=== PATIENT | female | born 1950 | race Caucasian/White ===

== ENCOUNTER 2021-04-21 22:57 | Inpatient (IN) | payer MEDICARE ==
[2021-04-21] MEDS ORDERED: Ondansetron PF 4 MG/2 ML Vial IVP PRN (23:00)
[2021-04-21] MEDS ORDERED: Acetaminophen 325 MG TAB PO PRN (23:00)
[2021-04-21] MEDS ORDERED: Senokot S 8.6-50 MG TAB PO PRN (23:00)
[2021-04-21] MEDS ORDERED: Calcium Carbonate 500 MG ChewTAB PO PRN (23:00)
[2021-04-21] MEDS ORDERED: Zolpidem Tartrate 5 MG TAB PO PRN (23:00)
[2021-04-21 23:09] VITALS: BMI 37.8
[2021-04-21] MEDS ORDERED: Pantoprazole 80 MG in Sodium Chloride 0.9% 100 ML IVPB SCH (23:15)
[2021-04-21] MEDS ORDERED: Atorvastatin Calcium 10 MG TAB PO SCH (23:30)
[2021-04-21] MEDS ORDERED: buPROPion 75 MG TAB PO SCH (23:30)
[2021-04-21] MEDS ORDERED: FLU VACC QS2021-22(65YR UP)/PF 240 MCG/0.7 ML SYRINGE IM ONE (23:45)
[2021-04-22] MEDS: Lactated Ringer's 1,000 ML IV SCH (00:10)
[2021-04-22] MEDS ORDERED: traZODone HCl 50 MG TAB PO SCH (01:00)
[2021-04-22 01:53] LABS: Lactic Acid 2.2 mmol/L (0.5-2.2)
[2021-04-22 01:58] LABS: Iron 15 ug/dL (50-170); Iron Binding Capacity, Total 450 mcg/dL (265-497)
[2021-04-22 02:18] LABS: Ferritin 7.65 ng/mL (10-291)
[2021-04-22] MEDS: Levothyroxine Sodium 25 MCG TAB PO SCH (06:11)
[2021-04-22 08:32] LABS: #Eosinphils 0.1 10x3/uL (0.0-0.5); #Monocytes 0.5 10x3/uL (0.0-1.1); %Basophils 0.4 % (0.0-2.0); %Lymphocytes 19.2 % (18.0-47.0); %Monocytes 7.4 % (0.0-10.0); %Neutrophils 71.4 % (40.0-75.0); Hemoglobin 6.2 g/dL (12.0-15.5); Mean Corpuscular HGB CONC 28.8 g/dL (32.0-36.0); Mean Corpuscular Hemoglobin 21.9 pg (27.0-33.0); Mean Platelet Volume 11.4 fl (7.4-10.4); Platelet Count 265 10x3/uL (150-450); RBC Distribution Width 18.2 % (11.5-14.5); Red Blood Cell (RBC) Count 2.83 10x6/uL (3.90-5.03)
[2021-04-22 08:43] LABS: Anion Gap 15 mmol/L (10-20); BUN (Urea Nitrogen) 12 mg/dL (9.8-20.1); Calc. Creatinine Clearance 81 mL/min (70-130); Calcium 8.2 mg/dL (7.8-10.44); Carbon Dioxide 20 mmol/L (23-31); Chloride 110 mmol/L (98-107); Glucose 87 mg/dL (83-110); Potassium 3.9 mmol/L (3.5-5.1); Sodium 141 mmol/L (136-145)
[2021-04-22 08:57] LABS: Platelet Morphology Comment Appears Adequate
[2021-04-22 08:59] LABS: Elliptocytes SLIGHT = 2-5 cells (100X) (0-1/hpf); Schistocytes SLIGHT = 2-5 cells (100X) (0-1/hpf); Target Cells SLIGHT = 2-5 cells (100X) (0-1/hpf); Tear Drops SLIGHT = 2-5 cells (100X) (0-1/hpf)
[2021-04-22 09:00] LABS: Anisocytosis MODERATE=16-30 cells (100X) (0-5/hpf); Hypochromia MODERATE=16-30 cells (100X) (0-5/hpf); Macrocytosis SLIGHT = 6-15 cells (100X) (0-5/hpf); Microcytosis SLIGHT = 6-15 cells (100X) (0-5/hpf)
[2021-04-22] MEDS: buPROPion 75 MG TAB PO SCH ×2 (09:24→21:12)
[2021-04-22] MEDS: Losartan 25 MG TAB PO SCH (09:24)
[2021-04-22 11:54] LABS: Vitamin B12 Greater than 2000 pg/mL (211-911)
[2021-04-22] MEDS ORDERED: diphenhydrAMINE 50 MG/ML VIAL IVP SCH (12:30)
[2021-04-22 18:04] LABS: Hemoglobin 7.4 g/dL (12.0-15.5)
[2021-04-22] MEDS: Atorvastatin Calcium 10 MG TAB PO SCH (21:10)
[2021-04-22] MEDS: traZODone HCl 50 MG TAB PO SCH (21:10)
[2021-04-22] MEDS: Pantoprazole 40 MG VIAL IVP SCH (21:13)
[2021-04-23 04:23] LABS: #Basophils 0.1 10x3/uL (0.0-0.2); #Eosinphils 0.1 10x3/uL (0.0-0.5); #Monocytes 0.4 10x3/uL (0.0-1.1); #Neutrophils 3.3 10x3/uL (1.5-8.4); %Eosinophils 2.5 % (0.0-6.0); %Lymphocytes 23.5 % (18.0-47.0); %Monocytes 8.2 % (0.0-10.0); Hemoglobin 7.4 g/dL (12.0-15.5); Mean Corpuscular HGB CONC 29.2 g/dL (32.0-36.0); Mean Corpuscular Hemoglobin 22.6 pg (27.0-33.0); Mean Corpuscular Volume 77.1 fl (81.6-98.3); Mean Platelet Volume 11.2 fl (7.4-10.4); Platelet Count 250 10x3/uL (150-450); RBC Distribution Width 18.2 % (11.5-14.5); Red Blood Cell (RBC) Count 3.28 10x6/uL (3.90-5.03); White Blood Cell (WBC) Count 5.1 10x3/uL (3.5-10.5)
[2021-04-23 04:47] LABS: ALT (SGPT) 16 U/L (8-55); AST (SGOT) 25 U/L (5-34); Albumin 3.3 g/dL (3.4-4.8); Alkaline Phosphatase 64 U/L (40-110); Anion Gap 12 mmol/L (10-20); BUN (Urea Nitrogen) 7 mg/dL (9.8-20.1); Calc. Creatinine Clearance 79 mL/min (70-130); Calcium 7.9 mg/dL (7.8-10.44); Carbon Dioxide 20 mmol/L (23-31); Chloride 114 mmol/L (98-107); Globulin 2.1 g/dL (2.4-3.5); Glucose 84 mg/dL (83-110); Potassium 3.7 mmol/L (3.5-5.1); Protein, Total 5.4 g/dL (5.8-8.1); Sodium 142 mmol/L (136-145)
[2021-04-23] MEDS: Levothyroxine Sodium 25 MCG TAB PO SCH (06:11)
[2021-04-23 07:08] LABS: Hypochromia SLIGHT = 6-15 cells (100X) (0-5/hpf); Microcytosis SLIGHT = 6-15 cells (100X) (0-5/hpf); Ovalocytes SLIGHT = 2-5 cells (100X) (0-1/hpf); Polychromasia SLIGHT = 2-3 cells (100X) (0-2/hpf)
[2021-04-23 07:10] LABS: Tear Drops SLIGHT = 2-5 cells (100X) (0-1/hpf)
[2021-04-23 08:39] LABS: Hemoglobin 8.2 g/dL (12.0-15.5)
[2021-04-23] MEDS: Losartan 25 MG TAB PO SCH (08:50)
[2021-04-23] MEDS: Pantoprazole 40 MG VIAL IVP SCH ×2 (08:50→21:21)
[2021-04-23] MEDS: buPROPion 75 MG TAB PO SCH ×2 (08:50→21:21)
[2021-04-23] MEDS: Lactated Ringer's 1,000 ML IV SCH ×2 (10:11→15:20)
[2021-04-23] MEDS ORDERED: Lidocaine 1% PF 5 ML VIAL ONE (11:26)
[2021-04-23] MEDS ORDERED: PROPOFOL 20 ML ONE (11:26)
[2021-04-23] MEDS ORDERED: GoLYTELY 4,000 ml Bottle PO SCH ×2 (12:30→15:00)
[2021-04-23 14:06] LABS: Hemoglobin 8.8 g/dL (12.0-15.5)
[2021-04-23 20:21] LABS: Hemoglobin 9.1 g/dL (12.0-15.5)
[2021-04-23] MEDS: Atorvastatin Calcium 10 MG TAB PO SCH (21:19)
[2021-04-23] MEDS: traZODone HCl 50 MG TAB PO SCH (21:19)
[2021-04-24 03:18] LABS: Hemoglobin 8.9 g/dL (12.0-15.5)
[2021-04-24 05:21] LABS: #Eosinphils 0.1 10x3/uL (0.0-0.5); #Monocytes 0.4 10x3/uL (0.0-1.1); #Neutrophils 3.4 10x3/uL (1.5-8.4); %Basophils 0.6 % (0.0-2.0); %Eosinophils 2.7 % (0.0-6.0); %Lymphocytes 24.6 % (18.0-47.0); %Monocytes 7.2 % (0.0-10.0); %Neutrophils 64.5 % (40.0-75.0); Hemoglobin 8.3 g/dL (12.0-15.5); Mean Corpuscular HGB CONC 30.4 g/dL (32.0-36.0); Mean Corpuscular Hemoglobin 23.3 pg (27.0-33.0); Mean Corpuscular Volume 76.7 fl (81.6-98.3); Mean Platelet Volume 10.7 fl (7.4-10.4); Platelet Count 222 10x3/uL (150-450); RBC Distribution Width 18.6 % (11.5-14.5); Red Blood Cell (RBC) Count 3.56 10x6/uL (3.90-5.03); White Blood Cell (WBC) Count 5.3 10x3/uL (3.5-10.5)
[2021-04-24 05:36] LABS: ALT (SGPT) 19 U/L (8-55); AST (SGOT) 27 U/L (5-34); Albumin 3.4 g/dL (3.4-4.8); Alkaline Phosphatase 61 U/L (40-110); Anion Gap 14 mmol/L (10-20); BUN (Urea Nitrogen) 5 mg/dL (9.8-20.1); Bilirubin, Total 0.6 mg/dL (0.2-1.2); Calc. Creatinine Clearance 82 mL/min (70-130); Calcium 7.9 mg/dL (7.8-10.44); Carbon Dioxide 20 mmol/L (23-31); Chloride 111 mmol/L (98-107); Globulin 2.2 g/dL (2.4-3.5); Glucose 90 mg/dL (83-110); Potassium 3.7 mmol/L (3.5-5.1); Protein, Total 5.6 g/dL (5.8-8.1); Sodium 141 mmol/L (136-145)
[2021-04-24] MEDS: Levothyroxine Sodium 25 MCG TAB PO SCH (06:16)
[2021-04-24 07:31] LABS: Hemoglobin 8.2 g/dL (12.0-15.5)
[2021-04-24] MEDS ORDERED: PROPOFOL 20 ML ONE (10:02)
[2021-04-24] MEDS ORDERED: Lidocaine 2% MPF 10 ML AMP (For Epidural Use) ONE (10:05)
[2021-04-24] MEDS: Losartan 25 MG TAB PO SCH (10:18)
[2021-04-24] MEDS: Lactated Ringer's 1,000 ML IV SCH (10:27)
[2021-04-24] MEDS: buPROPion 75 MG TAB PO SCH ×2 (10:33→20:51)
[2021-04-24] MEDS: Pantoprazole 40 MG VIAL IVP SCH (10:34)
[2021-04-24] MEDS: Ferrous Sulfate 325 MG TAB PO SCH (17:38)
[2021-04-24] MEDS: Atorvastatin Calcium 10 MG TAB PO SCH (20:52)
[2021-04-24] MEDS: traZODone HCl 50 MG TAB PO SCH (20:59)
[2021-04-25 05:13] LABS: #Eosinphils 0.1 10x3/uL (0.0-0.5); #Monocytes 0.5 10x3/uL (0.0-1.1); #Neutrophils 4.9 10x3/uL (1.5-8.4); %Basophils 0.6 % (0.0-2.0); %Lymphocytes 21.9 % (18.0-47.0); %Monocytes 6.3 % (0.0-10.0); %Neutrophils 68.8 % (40.0-75.0); Hemoglobin 8.7 g/dL (12.0-15.5); Mean Corpuscular HGB CONC 29.7 g/dL (32.0-36.0); Mean Corpuscular Hemoglobin 23.2 pg (27.0-33.0); Mean Corpuscular Volume 78.1 fl (81.6-98.3); Mean Platelet Volume 11.6 fl (7.4-10.4); Platelet Count 233 10x3/uL (150-450); RBC Distribution Width 19.6 % (11.5-14.5); Red Blood Cell (RBC) Count 3.75 10x6/uL (3.90-5.03); White Blood Cell (WBC) Count 7.1 10x3/uL (3.5-10.5)
[2021-04-25 05:24] LABS: ALT (SGPT) 19 U/L (8-55); AST (SGOT) 25 U/L (5-34); Albumin 3.3 g/dL (3.4-4.8); Alkaline Phosphatase 66 U/L (40-110); Anion Gap 14 mmol/L (10-20); BUN (Urea Nitrogen) 6 mg/dL (9.8-20.1); Bilirubin, Total 0.6 mg/dL (0.2-1.2); Calc. Creatinine Clearance 79 mL/min (70-130); Calcium 8.2 mg/dL (7.8-10.44); Carbon Dioxide 22 mmol/L (23-31); Chloride 111 mmol/L (98-107); Globulin 2.2 g/dL (2.4-3.5); Glucose 85 mg/dL (83-110); Potassium 3.8 mmol/L (3.5-5.1); Protein, Total 5.5 g/dL (5.8-8.1); Sodium 143 mmol/L (136-145)
[2021-04-25] MEDS: Levothyroxine Sodium 25 MCG TAB PO SCH (06:24)
[2021-04-25] MEDS: Ferrous Sulfate 325 MG TAB PO SCH ×2 (08:54→16:58)
[2021-04-25] MEDS: Losartan 25 MG TAB PO SCH (08:54)
[2021-04-25] MEDS: buPROPion 75 MG TAB PO SCH ×2 (08:54→20:37)
[2021-04-25 14:36] LABS: Hemoglobin 8.6 g/dL (12.0-15.5); Platelet Count 238 10x3/uL (150-450)
[2021-04-25] MEDS: traZODone HCl 50 MG TAB PO SCH (20:37)
[2021-04-25] MEDS: Atorvastatin Calcium 10 MG TAB PO SCH (20:37)
[2021-04-25 23:34] VITALS: BP 163/83; TEMP 98.6
== END 2021-04-25 21:40 | disposition home or self-care (01) | DRG 811 ==
LOC: CSHTELE 22:57
PROVIDERS: ADMIT Student in an Organized Health Care Education/Training Program; ATTEND Hospitalist
PROC: 30233N1 Transfusion of Nonautologous Red Blood Cells into Peripheral Vein, Percutaneous Approach (ICD-10-PCS; principal; 2021-04-22)
PROC: 0DB98ZX Excision of Duodenum, Via Natural or Artificial Opening Endoscopic, Diagnostic (ICD-10-PCS; 2021-04-23)
PROC: 0DB68ZX Excision of Stomach, Via Natural or Artificial Opening Endoscopic, Diagnostic (ICD-10-PCS; 2021-04-23)
PROC: 0DJD8ZZ Inspection of Lower Intestinal Tract, Via Natural or Artificial Opening Endoscopic (ICD-10-PCS; 2021-04-24)
DX: D50.9 Iron deficiency anemia, unspecified (principal); R65.11 Systemic inflammatory response syndrome (SIRS) of non-infectious origin with acute organ dysfunction; E87.2 Acidosis; N17.9 Acute kidney failure, unspecified; K92.2 Gastrointestinal hemorrhage, unspecified; E78.5 Hyperlipidemia, unspecified; I10 Essential (primary) hypertension; E03.9 Hypothyroidism, unspecified; I48.0 Paroxysmal atrial fibrillation; F32.A Depression, unspecified; K44.9 Diaphragmatic hernia without obstruction or gangrene; D17.5 Benign lipomatous neoplasm of intra-abdominal organs; K64.8 Other hemorrhoids; K29.80 Duodenitis without bleeding; K57.30 Diverticulosis of large intestine without perforation or abscess without bleeding; Z20.822 Contact with and (suspected) exposure to COVID-19; D62 Acute posthemorrhagic anemia; K21.9 Gastro-esophageal reflux disease without esophagitis; Z88.5 Allergy status to narcotic agent; Z88.2 Allergy status to sulfonamides; Z79.01 Long term (current) use of anticoagulants; Z86.16 Personal history of COVID-19; Z90.49 Acquired absence of other specified parts of digestive tract; Z79.82 Long term (current) use of aspirin; Z79.899 Other long term (current) drug therapy; Z79.890 Hormone replacement therapy
CPT/HCPCS: 36415; 36430; 80048; 80053; 82607; 82728; 82746; 83540; 83550; 83605; 85025; 85046; 86850; 86900; 86901; 88305; 88312; 93306; 93970; C9113; J1200; J2704; J3490; J7120; P9016